=== PATIENT | male | born 1995 | race Caucasian/White ===

== ENCOUNTER 2016-09-19 15:52 | Emergency (ER) | payer BC ==
[~2016-09-19] VITALS: Ht 177.8 cm; Wt 97.3 kg
[2016-09-19 15:58] VITALS: TEMP 37.5; Ht 177.8 cm; Wt 97.3 kg
[2016-09-19 16:02] VITALS: O2SAT 97
--- NOTE | 2016-09-19 16:04 | EMERGENCY ROOM VISIT NOTE ---
History Report prepared by Amador: Malvin Wagner Under the Supervision of: Dr. Rylan Cooper M.D. First contact with patient: 15:56 Chief Complaint: ALCOHOL OVERDOSE Stated Complaint: ETOH History of Present Illness The patient is a 21 year old male who presents to the Emergency Room with complaints of a persistent alcohol intoxication that started earlier this afternoon. The patient says he was not drinking alcohol today or using drugs. He says that he was forced to come here by the airway controller around him. Per the nursing staff, the patient was seen at the [facility] 3 hours ago and his alcohol level was 300. His alcohol level was 280 more recently. The patient denies vomiting or recent trauma. He says he has no chronic medical problems. The patient notes that he is visiting and not a [employer] student, and he says that he is alone. History limited secondary to intoxication. Source of History: patient, nursing staff Onset: Earlier this afternoon Position: other (global - alcohol intoxication) Symptom Intensity: 300, 3 hours ago. 280 more recently Timing: other (persistent) Associated Symptoms: No vomiting Note: Denies recent trauma. Denies drinking alcohol or using drugs. Review of Systems ROS unobtainable secondary to patient intoxication. Past Medical & Surgical Medical Problems: (1) No chronic problems Family History No pertinent family history Social History Alcohol Use: occasionally Marital Status: single Housing Status: lives with roommate Occupation Status: [employer] student Current/Historical Medications No Active Prescriptions or Reported Meds Allergies Coded Allergies: No Known Allergies (Unverified , 09/19/16) Physical Exam Vital Signs Date Time Temp Pulse Resp B/P Pulse Ox O2 Delivery O2 Flow Rate FiO2 09/19/16 18:17 101 22 133/78 100 09/19/16 17:18 96 18 154/74 99 Room Air 09/19/16 16:18 107 09/19/16 16:02 97 Room Air 09/19/16 15:58 37.5 130 18 128/83 99 Room Air 09/19/16 15:55 36.7 126 18 128/83 94 Room Air Physical Exam GENERAL: Patient is in no acute distress. Smells of alcohol. HEENT: No acute trauma, normocephalic atraumatic, mucous membranes moist, no nasal congestion, no scleral icterus. Pupils equal and reactive to light. No obvious head trauma. NECK: No stridor, no adenopathy, no meningismus, trachea is midline. LUNGS: Clear to auscultation bilaterally, no wheeze, no rhonchi, breath sounds equal. HEART: Without murmurs gallops or rubs, regular rate and rhythm. ABDOMEN: Soft, nontender, bowel sounds positive, no hernias, no peritonitis. EXTREMITIES: No cyanosis or edema, full range of motion of all the joints without pain or difficulty, no signs for acute trauma. NEUROLOGIC: Moderately intoxicated with alcohol, no acute motor or sensory deficits, no focal weakness. Awake. SKIN: No rash, no jaundice, no diaphoresis. Medical Decision & Procedures Laboratory Results 09/19/16 16:45 Test 09/19/16 16:45 Anion Gap 8.0 mmol/L (3-11) Est Creatinine Clear Calc Drug Dose 106.1 ml/min Estimated GFR () 91.0 Estimated GFR (Non- 78.5 BUN/Creatinine Ratio 8.1 (10-20) Calcium Level 8.9 mg/dl (8.5-10.1) Ethyl Alcohol mg/dL 260.0 mg/dl (0-3) Laboratory results reviewed by me. ED Course 1556: The patient was evaluated in room B4B. A complete history and physical exam was performed. 1740: I reevaluated the patient and he is now very apologetic and feeling fine. The patient verbally expressed understanding and agreement of the treatment plan. The patient will be discharged. Medical Decision Differential diagnosis includes but is not limited to alcohol or drug abuse, trauma, electrolyte imbalance, alcohol overdose. The patient presents for an alcohol overdose. He has been awake the entire time he has been in the emergency room. He was initially somewhat verbally abusive but did calm down during his stay. There was no report of physical trauma. The patient denied complaints or concerns. There was no significant electrolyte abnormality or kidney failure. Alcohol level was elevated in the mid 200s consistent with his alcohol use/abuse. The patient has a sober friend at bedside, he is cooperative and taking in oral fluids. I do think he can be discharged. He was told to stay hydrated and to avoid alcohol in excess. Impression Primary Impression: Alcohol intoxication Scribe Attestation The scribe's documentation has been prepared under my direction and personally reviewed by me in its entirety. I confirm that the note above accurately reflects all work, treatment, procedures, and medical decision making performed by me. Departure Information Dispostion Home / Self-Care Prescriptions No Active Prescriptions or Reported Meds Referrals No Doctor, Assigned (PCP) Forms HOME CARE DOCUMENTATION FORM, IMPORTANT VISIT INFORMATION Patient Instructions [facility]: [employer] Students and Alcohol Related Visits, My [facility] Additional Instructions stay well hydrated today no more alcohol today rest stay with friends never use alcohol in excess return if worsening
[2016-09-19 17:16] LABS: BUN/CREATININE RATIO 8.1 (10-20); CALCIUM 8.9 mg/dl (8.5-10.1); CREATININE 1.3 mg/dl (0.60-1.40); POTASSIUM 4.1 mmol/L (3.5-5.1)
[2016-09-19 18:17] VITALS: BP 133/78; PULSE 101; O2SAT 100
== END 2016-09-19 18:18 | disposition home or self-care (01) ==
LOC: C.EDB 15:54
DX: F10.129 Alcohol abuse with intoxication, unspecified (principal); Y90.8 Blood alcohol level of 240 mg/100 ml or more